=== PATIENT | female | born 1995 | race Caucasian/White ===

== ENCOUNTER 2016-10-30 20:39 | Emergency (ER) | payer MEDICAID ==
[~2016-10-30] VITALS: Ht 162.6 cm; Wt 86.0 kg
[2016-10-30] MEDS ORDERED: SODIUM CHLORIDE 0.9% 1,000 ML IV ONE (22:59)
[2016-10-30] MEDS ORDERED: ONDANSETRON HCL 4MG/2ML VIAL IV STA (22:59)
[2016-10-30] MEDS ORDERED: KETOROLAC 30MG/ML VIAL IV ONE (23:00)
[2016-10-30 23:39] LABS: BASOPHILS % 0.4 % (0.0-2.0); EOSINOPHILS % 3.2 % (0.0-5.0); HEMATOCRIT. 37.2 % (36.0-48.0); LYMPHOCYTES % 23.8 % (20.0-50.0); MEAN CORPUSCULAR HEMOGLOBIN 32.2 pg (28.0-32.0); MEAN CORPUSCULAR VOLUME 92.5 fL (81.0-99.0); MEAN PLATELET VOLUME 10.3 fl (7.4-10.4); NEUTROPHILS % 60.6 % (40.0-76.0); PLATELET 153 x1000/uL (130-400); RED BLOOD CELL COUNT 4.02 mill/uL (4.2-5.4); RED CELL DISTRIBUTION WIDTH 12.5 % (11.6-14.6)
[2016-10-30 23:43] LABS: CHLORIDE 107 mEq/L (98-107)
[2016-10-30 23:52] LABS: CARBON DIOXIDE 25 mEq/L (21-32)
[2016-10-31 02:12] VITALS: BP 98/72
== END 2016-10-31 06:05 | disposition home or self-care (01) ==
LOC: ER 20:39
DX: R10.30 Lower abdominal pain, unspecified (principal)
CPT/HCPCS: 36415; 74176; 80053; 83690; 85025; 96361; 96374; 96375; 99285; J1885; J2405; J7030; Z7610